=== PATIENT | female | born 1980 | race Caucasian/White ===

== ENCOUNTER 2018-04-24 19:04 | Emergency (ER) | payer MEDICAID ==
--- NOTE | 2018-04-24 21:05 | OBHP ---
Datetime: 04/24/2018 20:57 IP Adm Impression: Term, intrauterine ; No Active Labor IP Admit Plan: Observation/Evaluation Admit Comment, IP Provider: Patient is a at 38 weeks 6 days patient presents to labor and deli very leading of vaginal spotting. Patient reports occasional uterine contraction mild intensity no le akage of fluid. Patient care at [facility] patient currently on methadone. Patien t denies any other complications. Past medical history denies Past surgical history history of secondary to placenta previa Social history denies alcohol tobacco currently on methadone Medications vitamins and methadone Review of systems patient denies headache chest pain shortness of breath palpitations nausea vomit ing diarrhea heat or cold intolerance easy bruisability musculoskeletal or neurological complaints Intrauterine at 38+6 weeks Patient presents to labor and delivery for vaginal spotting Patient has no records available Patient desires tubal ligation The patient was counseled regarding risks benefits and alternatives to delivery. Patient was infor med that my primary concern would be to transfer the baby for level III NICU care in the event of wit hdrawal symptoms. Patient aware delivery not imminent patient opted to leave the hospital patient and partner stated they were going to [facility] (formerly [facility]]. The patient and partner were given the opportunity to ask questions I discussed the risks benefits alternatives to leaving patient and part ner felt it was noted best interest to go to tertiary care center. Patient's wishes respected labor p recautions provided Pelvic Type - PN: Adequate Extremities - PN: Normal Abdomen - PN: Normal Back - PN: Normal Breast - PN: Not Done Lungs - PN: Normal Heart - PN: Normal Thyroid - PN: Normal Neurologic - PN: Normal HEENT - PN: Normal General - PN: Normal Weight - Estimated: 7 Presentation-Admit: Transverse FHR - Baseline A Provider: 145 Gestation - Est Wks by US: 38.0 Pool Provider: Negative EGA AdmitDate IP: 38.6 Vital Signs Provider: Reviewed IP Chief Complaint: Uterine contractions NICHD Variability Prov Fetus A: Moderate 6-25bpm NICHD Accel Fetus A IP Provider: 10X10 FHR Category Provider Fetus A: Category I NICHD Decel Fetus A IP Provider: None Dilatation, Provider: 1-2 Effacement, Provider: 50 Station, Provider: -2 Genitourinary Exam: Normal DTRs - PN: Normal
[2018-04-25 03:13] VITALS: BP 112/67; PULSE 57
== END 2018-04-24 21:00 | disposition home or self-care (01) ==
LOC: H.EROB2 19:04
DX: O26.853 Spotting complicating pregnancy, third trimester (principal); Z3A.38 38 weeks gestation of pregnancy